=== PATIENT | female | born 1980 | race Caucasian/White ===

== ENCOUNTER 2019-01-07 08:51 | Inpatient (IN) | payer BC ==
[~2019-01-07] VITALS: Ht 157.5 cm; Wt 73.6 kg
[~2019-01-07 08:51] MED LIST: AMOX1TAB10 PO
[2019-01-07 09:07] VITALS: Ht 157.5 cm; Wt 73.6 kg
[2019-01-07 09:08] VITALS: BP 103/55; PULSE 89; RESP 20
[2019-01-07] MEDS ORDERED: morphine 2 MG INJ IV STA (09:09)
[2019-01-07] MEDS: morphine 2 MG INJ IV PRN ×3 (14:44→20:59)
[2019-01-07] MEDS ORDERED: ACETAMINOPHEN 325 MG TAB PO PRN (15:00)
[2019-01-07] MEDS: DEXTROSE 5%-LR 1,000 ML IV SCH (16:02)
[2019-01-08] MEDS: morphine 2 MG INJ IV PRN (01:09)
[2019-01-08] MEDS: LACTATED RINGER'S 1,000 ML IV SCH ×3 (01:12→21:16)
[2019-01-08] MEDS: DEXTROSE 5%-LR 1,000 ML IV SCH ×3 (08:37→21:16)
[2019-01-08] MEDS: PIPER-TAZO 3.375 GM IV (PMX) 100 ML IVPB SCH (18:03)
[2019-01-08] MEDS: DOCUSATE SODIUM 250 MG CAP PO SCH (18:03)
[2019-01-09] MEDS: PIPER-TAZO 3.375 GM IV (PMX) 100 ML IVPB SCH ×2 (02:27→10:19)
[2019-01-09] MEDS: DOCUSATE SODIUM 250 MG CAP PO SCH (10:20)
== END 2019-01-09 11:33 | disposition home or self-care (01) | DRG 833 ==
LOC: L-D 08:51 → OBT 08:51 → L-D 14:20
PROVIDERS: ADMIT Obstetrics & Gynecology Obstetrics; ATTEND Obstetrics & Gynecology Obstetrics
DX: O26.892 Other specified pregnancy related conditions, second trimester (principal); Z3A.26 26 weeks gestation of pregnancy; K52.9 Noninfective gastroenteritis and colitis, unspecified
CPT/HCPCS: 72195; 74181; 76700; 76705; 76817; 80048; 80053; 81003; 85025; 87086; G0463; J2270; J2543; J7120; J7121